=== PATIENT | female | born 1965 | race Caucasian/White ===

== ENCOUNTER 2016-05-10 22:19 | Emergency (ER) | payer BC ==
--- NOTE | 2016-05-22 21:14 | ER ---
ADMIT: 05/10/2016 RM/LOC: ER [facility] MR#: [id number] [address] [id number] DELILAH RODRIGUEZ [address] [place] [address] Emergency Room Report SEX: F AGE: 50 : 1965 DATE: 05/10/2016 ADDENDUM: CHIEF COMPLAINT: Vomiting and diarrhea. HISTORY OF PRESENT ILLNESS: This is a 50-year-old female, she vomited once and had diarrhea once in the last 2 hours. I gave her Zofran, this improved her symptoms. PHYSICAL EXAMINATION: On examination, she really did not have much pain, just minimal tenderness in the epigastric. I am sending her home with Zofran and told her to push fluids. Follow up with her primary care physician if she worsens. CLINICAL IMPRESSION: 1. Nausea. 2. Vomiting. 3. Diarrhea. MAXIM Terrell / Roman Cordero MD / modl JOB #: [id number] CC: Roman Cordero MD, Attending Physician Odalys Michaud MD, Family Physician
== END 2016-05-10 23:32 | disposition home or self-care (01) ==
LOC: ER 22:19
DX: R11.2 Nausea with vomiting, unspecified (principal); R19.7 Diarrhea, unspecified; E03.9 Hypothyroidism, unspecified